=== PATIENT | female | born 1965 | race Caucasian/White ===

== ENCOUNTER → 2022-04-09 | Outpatient (CLI) | payer SELFPAY | END | disposition home or self-care (01) | DX: R69 Illness, unspecified (principal) | CPT/HCPCS: 36415 ==

== ENCOUNTER → 2022-04-26 | Outpatient (CLI) | payer SELFPAY | END | disposition home or self-care (01) | DX: R69 Illness, unspecified (principal) | CPT/HCPCS: 36415 ==

== ENCOUNTER → 2023-09-10 | Outpatient (CLI) | payer MEDICAID, SELFPAY ==
[2023-09-10 13:45] VITALS: PULSE 100; PULSE 104; PULSE 106; PULSE 114; PULSE 118; PULSE 122; PULSE 124; PULSE 97; O2SAT 89; O2SAT 90; O2SAT 91; O2SAT 92; O2SAT 93; O2SAT 94; O2SAT 95
--- NOTE | 2023-09-10 13:49 | CPS ---
PATIENT PUSHED WHEEL CHAIR FOR STABILITY DURING 6 MINUTE WALK TEST. TESTING WAS DONE ON ROOM AIR. SHORT REST BREAKS TAKEN THROUGHOUT TESTING FOR KNEE PAIN AND SOB. PT DID NOT REQUIRE OXYGEN DURING THIS TESTING.
--- NOTE | 2023-09-12 06:27 | WT_ITS ---
PSN 6 Minute Walk Test 6 Minute Walk Test 6 Minute Walk Test: 6 Minute Walk Test PSN:6-Minute Walk Test Start: 09/10/23 13:45 Freq: Status: Active Protocol: [id number] Document 09/10/23 13:45 [facility] (Rec: 09/10/23 13:50 [facility] [id number]) 6 Minute Walk Test Date Performed 09/10/23 Time Performed 12:30 Height 5 ft 5 in Weight: 176.901 kg Weight in Pounds 390.[address]: Eliazar Messer Assistive device used: Walker Pre-test Oxygen Delivery Method Room Air Pulse Ox 94 Pulse Rate (60-100) 106 H Dyspnea Tobi Scale (0-10) 1 1st minute Oxygen Delivery Method Room Air Pulse Ox 91 Pulse Rate (60-100) 97 Dyspnea Tobi Scale (0-10) 2 Number of Rests Taken 0 Reported Symptoms Increased Work of Breathing 2nd minute Oxygen Delivery Method Room Air Pulse Ox 89 Pulse Rate (60-100) 104 H Dyspnea Tobi Scale (0-10) 3 Number of Rests Taken 1 Reported Symptoms Increased Work of Breathing 3rd minute Oxygen Delivery Method Room Air Pulse Ox 91 Pulse Rate (60-100) 114 H Dyspnea Tobi Scale (0-10) 4 Number of Rests Taken 1 Reported Symptoms Increased Work of Breathing 4th minute Oxygen Delivery Method Room Air Pulse Ox 93 Pulse Rate (60-100) 118 H Dyspnea Tobi Scale (0-10) 4 Number of Rests Taken 1 Reported Symptoms Increased Work of Breathing 5th minute Oxygen Delivery Method Room Air Pulse Ox 92 Pulse Rate (60-100) 122 H Dyspnea Tobi Scale (0-10) 4 Number of Rests Taken 1 Reported Symptoms Increased Work of Breathing 6th minute Oxygen Delivery Method Room Air Pulse Ox 90 Pulse Rate (60-100) 124 H Dyspnea Tobi Scale (0-10) 5 Number of Rests Taken 1 Reported Symptoms Increased Work of Breathing Post-test Oxygen Delivery Method Room Air Pulse Ox 95 Pulse Rate (60-100) 100 Dyspnea Tobi Scale (0-10) 1 Full Laps Walked 11 Partial Lap, Number of Tiles Walked 14 Total Distance Walked (ft) 663 09/10/23 13:49 Cardiopulmonary Services by Jill Lezama PATIENT PUSHED WHEEL CHAIR FOR STABILITY DURING 6 MINUTE WALK TEST. TESTING WAS DONE ON ROOM AIR. SHORT REST BREAKS TAKEN THROUGHOUT TESTING FOR KNEE PAIN AND SOB. PT DID NOT REQUIRE OXYGEN DURING THIS TESTING. Initialized on 09/10/23 13:49 - END OF NOTE Interpretation Interpretation: The patient was able to ambulate only 663 feet over the course of 6 minutes with the assistance of a walker and 5 breaks. Patient had to take frequent breaks secondary to knee pain. Patient did have significant desaturation from a baseline of 94% to as low as 89% and persistent tachycardia throughout testing with a peak heart rate of 124 bpm. These findings are consistent with a multifactorial etiology for dyspnea on exertion. Recommendations Recommendations: No supplemental oxygen is indicated at this time. However, patient will need to be followed closely given level of desaturation
== END | disposition home or self-care (01) ==
LOC: PSN 12:24
PROVIDERS: Referring Provider Internal Medicine Critical Care Medicine; Visit Provider Internal Medicine Critical Care Medicine
DX: R06.02 Shortness of breath (principal); J45.909 Unspecified asthma, uncomplicated
CPT/HCPCS: 94618

== ENCOUNTER → 2023-09-24 | Outpatient (CLI) | payer MEDICAID, SELFPAY | END | disposition home or self-care (01) | LOC: SL 13:55 | PROVIDERS: Referring Provider Internal Medicine Critical Care Medicine; Visit Provider Internal Medicine Critical Care Medicine | DX: G47.30 Sleep apnea, unspecified (principal) | CPT/HCPCS: 98960; G0463 ==